=== PATIENT | female | born 1995 | race Hispanic/Latino ===

== ENCOUNTER 2020-02-17 14:31 | Outpatient (CLI) | payer BC ==
[2020-02-17] MEDS ORDERED: Magnevist 469MG/ML 20 ML VIAL ONE (16:10)
--- NOTE | 2020-02-17 16:22 | MRI ---
MRI OF BRAIN WITH AND WITHOUT CONTRAST: 02/17/20 INDICTIONS: Headache. FINDINGS: Ventricles have normal size and position. No evidence of restricted diffusion. No mass or edema. No w luz elena matter abnormality. Sella turcica and pituitary appear normal for age. No abnormal enhancement. Intracranial internal carotid arteries, cerebral arteries, and basilar arteries show flow voids. The dural venous sinuses appear patent. The paranasal sinuses and mastoids appear clear. There are no secondary signs of intracranial hypertension. IMPRESSION: Unremarkable MRI of brain. POS: AH
== END 2020-02-17 14:32 | disposition home or self-care (01) ==
LOC: BICMRI 14:31
PROVIDERS: ATTEND Family Medicine
DX: G44.1 Vascular headache, not elsewhere classified (principal)
CPT/HCPCS: 70553; A9579